=== PATIENT | male | born 1950 | race Two or more races ===

== ENCOUNTER 2017-12-07 06:19 | Emergency (ER) | payer OTHER ==
[~2017-12-07] VITALS: Ht 170.2 cm; Wt 88.5 kg
[~2017-12-07 06:19] MED LIST: GABA100C PO; SERT50TA PO
[2017-12-07] MEDS ORDERED: IV NS 0.9% 1,000 ML BAG IV ONE (06:30)
--- NOTE | 2017-12-07 06:30 | NUR ---
BIB [facility] TO ER BED 13 C/O DEPRESSION, +SI. AA/OX4. NO S/S SOB. SKIN PINK, WARM, DRY. MOVES ALL EXTREMITIES WELL. AMBULATED TO HOSPITAL BED WITH STABLE GAIT. +HTN BPB 164/106. ALL VSS. NAD. EQUAL FACIAL SYMMETRY. 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 WILL CONTINUE TO MONITOR.
[2017-12-07 07:14] LABS: APPEARANCE,URINE CLEAR (CLEAR); BILIRUBIN,URINE NEGATIVE (NEGATIVE); BLOOD, URINE NEGATIVE Ery/uL (NEGATIVE); COLOR,URINE YELLOW (YELLOW); KETONES,URINE NEGATIVE (NEGATIVE); LEUKOCYTE ESTERASE ,URINE NEGATIVE (NEGATIVE); NITRITE, URINE NEGATIVE (NEGATIVE); PH,URINE 7.5 (5.0-8.0); PROTEIN,URINE 1+ mg/dl (NEGATIVE); UGLUCOSE NEGATIVE (NEGATIVE); UROBILINOGEN,URINE 0.2 EU/dL (0.2)
--- NOTE | 2017-12-07 07:16 | NUR ---
ENDORSED TO ONCOMING SHIFT MARTA LEUNG. PT STABLE CONDITION. VSS. NAD.
[2017-12-07 07:19] LABS: BASOPHILS % (AUTO) 0.6 % (0.0-2.0); EOSINOPHILS % (AUTO) 0.6 % (0.0-6.0); HEMATOCRIT 45 % (39-51); HEMOGLOBIN 15.7 g/dL (13.5-17.5); LYMPHOCYTES # (AUTO) 0.8 /CMM (0.8-4.8); LYMPHOCYTES % (AUTO) 16.3 % (20.0-44.0); MEAN CORPUSCULAR HGB CONC 35 g/dl (31.0-36.0); MEAN CORPUSCULAR VOLUME 99 fL (80-96); MONOCYTES # (AUTO) 0.4 /CMM (0.1-1.30); MONOCYTES % (AUTO) 7.9 % (2.0-12.0); NEUTROPHILS # (AUTO) 3.5 /CMM (1.8-8.9); NEUTROPHILS % (AUTO) 74.6 % (43.0-81.0); PLATELET COUNT (AUTO) 141 /CMM (150-450); RED BLOOD CELL COUNT(AUTO) 4.53 MIL/uL (4.5-6.0); WHITE BLOOD COUNT (AUTO) 4.7 K/uL (4.3-11.0)
[2017-12-07 07:30] LABS: CALCIUM, SERUM 9.1 mg/dL (8.5-10.1); CARBON DIOXIDE 28 mmol/L (21-32); CHLORIDE 103 mmol/L (98-107); GLUCOSE 114 mg/dL (74-106); POTASSIUM 3.4 mmol/L (3.5-5.1); SODIUM SERUM 140 mmol/L (136-145); UREA NITROGEN, BLOOD 6 mg/dL (7-18)
[2017-12-07 07:32] LABS: BACTERIA,URINE None seen /HPF (None Seen); RBC,URINE NONE SEEN /HPF (0-2); WBC,URINE 0-2 /HPF (0-3)
--- NOTE | 2017-12-07 07:32 | NUR ---
PT ON [facility] COOPEATIVE WITH PIV 18 G IN LEFT HAND NORMAL SALINE INFUSING WITH OUT PAIN, REDNESS OR SWELLING. PT ALERT ORIENTED WANTS MORE ATIVAN ANXIOUS ATIVAN GIVEN 35 MINUTES AGO BY HEAD CHEF RN. PT WAITING FOR PSYCH EVALUATION. VSS WILL CONTINUE TO MONITOR.
[2017-12-07 07:33] LABS: SQUAMOUS EPITHELIAL CELL,UR Few /HPF (None Seen)
[2017-12-07 07:35] LABS: ALANINE AMINOTRANSFERASE 89 U/L (12-78); ALBUMIN 3.8 g/dL (3.4-5.0); ALCOHOL, BLOOD < 3 mg/dL (0-0); ALKALINE PHOSPHATASE 78 U/L (46-116); ASPARTATE AMINOTRANSFERASE 125 U/L (15-37); BILIRUBIN,DIRECT 0.3 mg/dL (0.0-0.2); BILIRUBIN,TOTAL 1.3 mg/dL (0.2-1.0); TOTAL PROTEIN, SERUM 7.7 g/dL (6.4-8.2)
[2017-12-07] MEDS ORDERED: THIAMINE HCL 100 MG TABLET PO ONE (08:00)
[2017-12-07] MEDS ORDERED: ONDANSETRON HCL/PF 4 MG/2 ML VIAL IV ONE (08:00)
[2017-12-07] MEDS ORDERED: LORAZEPAM INJ 2 MG/ML VIAL IV ONE (08:00)
[2017-12-07] MEDS ORDERED: POTASSIUM CHLORIDE 20 MEQ TAB.PRT.SR PO ONE (08:00)
[2017-12-07] MEDS ORDERED: FOLIC ACID 1 MG TABLET PO ONE (08:00)
[2017-12-07] MEDS ORDERED: FAMOTIDINE/PF INJ 20 MG/2 ML VIAL IV ONE (08:00)
--- NOTE | 2017-12-07 09:10 | NUR ---
PT STABLE MONITORED GIVEN MEDICATIONS ORDERED. RESTING QUIETLY PSYCH NURSE TO EVALUATE
[2017-12-07 11:38] VITALS: BP 155/91
== END 2017-12-07 11:38 | disposition home or self-care (01) ==
LOC: ER 06:24
DX: F32.9 Major depressive disorder, single episode, unspecified (principal); F10.10 Alcohol abuse, uncomplicated; D75.89 Other specified diseases of blood and blood-forming organs; E87.6 Hypokalemia; K70.9 Alcoholic liver disease, unspecified; F43.10 Post-traumatic stress disorder, unspecified; F17.200 Nicotine dependence, unspecified, uncomplicated; Z91.14 Patient's other noncompliance with medication regimen; Z59.0 Homelessness
CPT/HCPCS: 36415; 80048; 80076; 80305; 80329; 81001; 83690; 85025; 96361; 96374; 96375; 99284; G0480 ×2; J7030; 81000-TC; A4606; Z7610

== ENCOUNTER 2018-12-03 21:57 | Emergency (ER) | payer OTHER ==
[~2018-12-03] VITALS: Ht 170.2 cm; Wt 85.3 kg
--- NOTE | 2018-12-03 22:00 | NUR ---
RECIEVED PATIENT BROUGHT IN BY AMBULANCE. PATIENT IS UNDER THE INFLUENCE OF ALCOHOL, SOBER. ASSISTED TO BED COMFORTABLY.
[2018-12-03] MEDS ORDERED: IV NS 0.9% 1,000 ML BAG IV ONE (22:30)
[2018-12-03 22:37] LABS: EOSINOPHILS % (AUTO) 1.8 % (0.0-6.0); HEMATOCRIT 39 % (39-51); HEMOGLOBIN 13.2 g/dL (13.5-17.5); LYMPHOCYTES # (AUTO) 1.9 /CMM (0.8-4.8); LYMPHOCYTES % (AUTO) 29.8 % (20.0-44.0); MEAN CORPUSCULAR HGB CONC 34 g/dl (31.0-36.0); MEAN CORPUSCULAR VOLUME 101 fL (80-96); MONOCYTES # (AUTO) 0.7 /CMM (0.1-1.30); MONOCYTES % (AUTO) 11.2 % (2.0-12.0); NEUTROPHILS # (AUTO) 3.7 /CMM (1.8-8.9); NEUTROPHILS % (AUTO) 57.2 % (43.0-81.0); PLATELET COUNT (AUTO) 152 /CMM (150-450); RED BLOOD CELL COUNT(AUTO) 3.85 MIL/uL (4.5-6.0); WHITE BLOOD COUNT (AUTO) 6.5 K/uL (4.3-11.0)
[2018-12-03 22:43] LABS: CALCIUM, SERUM 8.4 mg/dL (8.5-10.1)
[2018-12-03 22:55] LABS: ALBUMIN 3.4 g/dL (3.4-5.0); BILIRUBIN,DIRECT 0.1 mg/dL (0.0-0.2); BILIRUBIN,TOTAL 0.5 mg/dL (0.2-1.0); TOTAL PROTEIN, SERUM 6.9 g/dL (6.4-8.2)
[2018-12-03 22:59] LABS: SALICYLATE 2.2 mg/dL (2.8-20.0)
--- NOTE | 2018-12-03 23:14 | NUR ---
INITIATED IVF ORDERED. ADMINISTERED FLUIDS ORDERED. PATIENT ASLEEP AT THIS TIME.
--- NOTE | 2018-12-04 05:29 | NUR ---
DISCHARGE INSTRUCTIONS AND HEALTH TEACHINGS GIVEN TO PATIENT. DISCHARGE PAPERS SIGNED BY THE PATIENT. IV CATHETER REMOVED, COMPLETE AND INTACT, NO BLEEDING NOTED, INSTRUCTED PATIENT TO APPLY PRESSURE. PATIENT IS A/O X4, AWAKE, AMBULATORY. PATIENT SAID HE GOING BACK TO HIS "HOME" AT [place]. PATIENT LEFT THE FACILITY AT THIS TIME WITH ALL HIS BELONGINGS ACCOUNTED FOR.
[2018-12-04 05:43] VITALS: BP 133/81
--- NOTE | 2018-12-04 05:43 | NUR ---
PT PROVIDED WITH TAP CARD.
== END 2018-12-04 05:44 | disposition home or self-care (01) ==
LOC: ER 21:57
DX: F10.129 Alcohol abuse with intoxication, unspecified (principal); F32.9 Major depressive disorder, single episode, unspecified; F43.10 Post-traumatic stress disorder, unspecified; F17.200 Nicotine dependence, unspecified, uncomplicated; R53.83 Other fatigue; R51 Headache; Z59.0 Homelessness; Z79.899 Other long term (current) drug therapy; Y90.6 Blood alcohol level of 120-199 mg/100 ml
CPT/HCPCS: 36415; 70450; 80048; 80076; 80305; 80307; 80329; 85025; 99284; G0480; J7030

== ENCOUNTER 2018-12-06 22:35 | Emergency (ER) | payer OTHER ==
[~2018-12-06] VITALS: Ht 182.9 cm; Wt 103.9 kg
--- NOTE | 2018-12-06 22:58 | NUR ---
PT IS BACK FROM THE CT SCAN.
[2018-12-06] MEDS ORDERED: TDAP [DIPH/PERTUSSIS/TET] 0.5 ML VIAL IM ONE ×2 (23:00)
--- NOTE | 2018-12-06 23:03 | NUR ---
EMT AT BESIDE FOR WOUND CLEANING
--- NOTE | 2018-12-06 23:11 | NUR ---
IMELDA FOUND IN A GAS STATION. TO ER BED 15. PT IS INTOXICATED. NO RESP DISTRESS NOTED. PER EMS REPORT, PT TRIPPED AND SCRAPPED HIS FACE ON THE GROUND. NOTED SKIN ABRASSION ON L FOREHEAD AND LAFT FACE. UNABLE TO GET MORE INFORMATION D/T PT IS INTOXICATED. MD AT BEDSIDE FOR EVAL. EMT AT BEDSIDE FOR WOUND CLEANING.
--- NOTE | 2018-12-07 02:56 | NUR ---
PT IN BED SLEEPING. NO DISTRESS NOTED.
[2018-12-07 06:07] VITALS: BP 122/82
--- NOTE | 2018-12-07 06:07 | NUR ---
Patient given written and verbal discharge instructions. Patient verbalizes understanding of instructions. Patient is ambulatory with steady gait. Refuses offer of intermediate placement. Patient given list of available shelters in surrounding area.
== END 2018-12-07 06:04 | disposition home or self-care (01) ==
LOC: ER 22:35
DX: S00.81XA Abrasion of other part of head, initial encounter (principal); F10.129 Alcohol abuse with intoxication, unspecified; R51 Headache; F32.9 Major depressive disorder, single episode, unspecified; F43.10 Post-traumatic stress disorder, unspecified; F17.200 Nicotine dependence, unspecified, uncomplicated; Y90.9 Presence of alcohol in blood, level not specified; Z59.0 Homelessness; Z79.899 Other long term (current) drug therapy; X58.XXXA Exposure to other specified factors, initial encounter; Y93.89 Activity, other specified; Y92.89 Other specified places as the place of occurrence of the external cause; Y99.8 Other external cause status
CPT/HCPCS: 70450-TC; 82962-TC; 90715

== ENCOUNTER 2018-12-15 20:54 | Emergency (ER) | payer OTHER ==
[~2018-12-15] VITALS: Ht 182.9 cm; Wt 103.9 kg
--- NOTE | 2018-12-15 21:15 | NUR ---
PT BIB [facility] WITH C/O OF ALCOHOL INTOXICATION. PT CLAIMS THAT HE HAD 3 BEERS AND THAT HE FELL. AAOX3. PT CONNECTED TO MONITOR. NOT IN ANY DISTRESS. NO SOB. BREATHING EVEN AND UNLABORED. WILL CONTINUE TO MONITOR
[2018-12-15] MEDS ORDERED: IBUPROFEN 600 MG TABLET PO ONE ×2 (21:25→21:30)
--- NOTE | 2018-12-15 21:35 | NUR ---
URINE COLLECTED AND SENT TO LAB
[2018-12-15 21:42] LABS: BASOPHILS # (AUTO) 0.1 /CMM (0.0-0.2); BASOPHILS % (AUTO) 1.2 % (0.0-2.0); EOSINOPHILS % (AUTO) 2.4 % (0.0-6.0); HEMATOCRIT 42 % (39-51); HEMOGLOBIN 14.1 g/dL (13.5-17.5); LYMPHOCYTES # (AUTO) 2.4 /CMM (0.8-4.8); LYMPHOCYTES % (AUTO) 40.3 % (20.0-44.0); MEAN CORPUSCULAR HGB CONC 34 g/dl (31.0-36.0); MEAN CORPUSCULAR VOLUME 101 fL (80-96); MONOCYTES # (AUTO) 0.6 /CMM (0.1-1.30); MONOCYTES % (AUTO) 10.9 % (2.0-12.0); NEUTROPHILS # (AUTO) 2.7 /CMM (1.8-8.9); NEUTROPHILS % (AUTO) 45.2 % (43.0-81.0); PLATELET COUNT (AUTO) 135 /CMM (150-450); RED BLOOD CELL COUNT(AUTO) 4.12 MIL/uL (4.5-6.0); WHITE BLOOD COUNT (AUTO) 5.9 K/uL (4.3-11.0)
[2018-12-15 21:44] LABS: APPEARANCE,URINE Clear (CLEAR); BILIRUBIN,URINE Negative (NEGATIVE); BLOOD, URINE Negative Ery/uL (NEGATIVE); COLOR,URINE Yellow (YELLOW); KETONES,URINE Negative (NEGATIVE); LEUKOCYTE ESTERASE ,URINE Negative (NEGATIVE); NITRITE, URINE Negative (NEGATIVE); PROTEIN,URINE Negative (NEGATIVE); UGLUCOSE Negative (NEGATIVE); UROBILINOGEN,URINE 0.2 EU/dL (0.2)
[2018-12-15 21:48] LABS: CALCIUM, SERUM 8.5 mg/dL (8.5-10.1); CARBON DIOXIDE 27 mmol/L (21-32); CHLORIDE 103 mmol/L (98-107); GLUCOSE 82 mg/dL (74-106); POTASSIUM 3.7 mmol/L (3.5-5.1); SODIUM SERUM 135 mmol/L (136-145); UREA NITROGEN, BLOOD 8 mg/dL (7-18)
[2018-12-15 21:54] LABS: ALANINE AMINOTRANSFERASE 18 U/L (12-78); ALBUMIN 3.6 g/dL (3.4-5.0); ALCOHOL, BLOOD 202 mg/dL (0-0); ALKALINE PHOSPHATASE 57 U/L (46-116); ASPARTATE AMINOTRANSFERASE 19 U/L (15-37); BILIRUBIN,DIRECT 0.1 mg/dL (0.0-0.2); BILIRUBIN,TOTAL 0.5 mg/dL (0.2-1.0)
[2018-12-15 21:57] LABS: ACETAMINOPHEN < 2 ug/ml (10-30); SALICYLATE 0.6 mg/dL (2.8-20.0)
--- NOTE | 2018-12-15 22:10 | NUR ---
PER SISTER COLLEEN BALDWIN CONTACT: , LESION ON SPINE FOUND MONTHS AGO WHEN PT WAS AT [facility] PT HAS FREQUENT FALLING EPISODES REGARDLESS OF ETOH INTOXICATION OR SOBER CONDITION
--- NOTE | 2018-12-16 00:03 | NUR ---
PT ASLEEP, NO ACUTE DISTRESS NOTED, RESP EVEN AND UNLABORED. CALL [facility] WITHIN REACH. WILL CONTINUE TO MONITOR.
--- NOTE | 2018-12-16 04:41 | NUR ---
PT RESTING COMFORTABLY IN BED. VITAL SIGNS STABLE. NO ACUTE DISTRESS NOTED AT THIS TIME
--- NOTE | 2018-12-16 05:39 | NUR ---
PT REMAINS ASLEEP, EASILY AROUSABLE, NO ACUTE DISTRESS NOTED, RESP EVEN AND UNLABORED. CALL [facility] WITHIN REACH. WILL CONTINUE TO MONITOR.
--- NOTE | 2018-12-16 06:25 | NUR ---
PT AAOX4 NO ACUTE DISTRESS NOTED, RESP EVEN AND UNLABORED. PT AMBULATORY TO THE BATHROOM WITH STEADY GAIT NOTED. PENDING DISCHARGE.
[2018-12-16 06:26] VITALS: BP 124/63
--- NOTE | 2018-12-16 06:31 | NUR ---
Patient given written and verbal discharge instructions. Patient verbalizes understanding of instructions. Patient is ambulatory with steady gait. Refuses offer of senior living placement. Patient given list of available shelters in surrounding area.
== END 2018-12-16 06:32 | disposition home or self-care (01) ==
LOC: ER 20:55
DX: S00.81XA Abrasion of other part of head, initial encounter (principal); F10.229 Alcohol dependence with intoxication, unspecified; R51 Headache; F32.9 Major depressive disorder, single episode, unspecified; F43.10 Post-traumatic stress disorder, unspecified; G89.29 Other chronic pain; F17.200 Nicotine dependence, unspecified, uncomplicated; F13.10 Sedative, hypnotic or anxiolytic abuse, uncomplicated; Y90.7 Blood alcohol level of 200-239 mg/100 ml; Z79.899 Other long term (current) drug therapy; Z59.0 Homelessness; X58.XXXA Exposure to other specified factors, initial encounter; Y93.89 Activity, other specified; Y92.89 Other specified places as the place of occurrence of the external cause; Y99.8 Other external cause status
CPT/HCPCS: 36415; 70450; 80048; 80076; 80305; 80307; 80329; 81001; 85025; 99284; G0480; 81000-TC